=== PATIENT | female | born 1995 | race Caucasian/White ===

== ENCOUNTER 2017-09-26 12:24 | Emergency (ER) | payer OTHER ==
[2017-09-26] MEDS ORDERED: NORMAL SALINE 1000 ML 1,000 ML IV ONE (12:58)
--- NOTE | 2017-09-26 12:58 | ER Document Report ---
ED Medical Screen (RME) - General Chief Complaint: Headache Stated Complaint: HEADACHE Time Seen by Provider: 09/26/17 12:57 Mode of Arrival: Ambulatory Information source: Patient Notes: 21-year-old female with a history of migraines (has not had a migraine for a while) who presents to the emergency room with frontal headache, nausea, feeling shaky and feeling like she is going to faint. Patient states she took ibuprofen without any relief. Patient states it is worse than her normal migraines. Patient denies any fever or neck stiffness. Patient denies significant photophobia. Patient denies any recent illnesses. TRAVEL OUTSIDE OF THE [place] IN LAST 30 DAYS: No - Related Data Allergies/Adverse Reactions: No Known Allergies Allergy (Verified 09/26/17 12:25) Physical Exam - Vital signs Vitals: Temp Pulse Resp BP Pulse Ox 98.8 F 73 14 114/64 97 09/26/17 12:31 09/26/17 12:31 09/26/17 12:31 09/26/17 12:31 09/26/17 12:31 Course - Vital Signs Vital signs: Temp Pulse Resp BP Pulse Ox 98.8 F 73 14 114/64 97 09/26/17 12:31 09/26/17 12:31 09/26/17 12:31 09/26/17 12:31 09/26/17 12:31
[2017-09-26] MEDS ORDERED: DIPHENHYDRAMINE HCL 50 MG/ML VIAL IV ONE (12:59)
[2017-09-26] MEDS ORDERED: METOCLOPRAMIDE HCL INJ/PF 10 MG/2 ML SDV IV ONE (12:59)
[2017-09-26 14:06] LABS: ABSOLUTE LYMPHOCYTES (AUTO) 1.2 10^3/uL (0.5-4.7); ABSOLUTE MONOCYTES (AUTO) 0.5 10^3/uL (0.1-1.4); ABSOLUTE NEUT (AUTO) 9.3 10^3/uL (1.7-8.2); BASOPHILS % (AUTO) 0.2 % (0-2); EOSINOPHILS % (AUTO) 0.4 % (0-6); HEMATOCRIT 44.1 % (36.0-47.0); HEMOGLOBIN 15.2 g/dL (12.0-15.5); LYMPHOCYTES % (AUTO) 10.8 % (13-45); MEAN CORPUSCULAR HEMOGLOBIN 31.5 pg (27.0-33.4); MEAN CORPUSCULAR HGB CONC 34.4 g/dL (32.0-36.0); MEAN CORPUSCULAR VOLUME 92 fl (80-97); MONOCYTES % (AUTO) 4.4 % (3-13); PLATELET COUNT 230 10^3/uL (150-450); RED BLOOD COUNT 4.82 10^6/uL (3.72-5.28); RED CELL DISTRIBUTION WIDTH 12.7 % (11.5-14.0); SEGMENTED NEUTROPHILS % (AUTO) 84.2 % (42-78); TOTAL CELLS COUNTED % (AUTO) 100 %
--- NOTE | 2017-09-26 14:59 | ER Document Report ---
ED Headache - General Mode of Arrival: Ambulatory Information source: Patient TRAVEL OUTSIDE OF THE [place] IN LAST 30 DAYS: No <KOREY DAIGLE - Last Filed: 09/26/17 15:06> <CARLYN HARO - Last Filed: 10/03/17 09:31> - General Chief Complaint: Headache Stated Complaint: HEADACHE Time Seen by Provider: 09/26/17 12:57 Notes: 21-year-old female that presents to the emergency department today with complaints of a migraine headache. Patient states she woke up with this headache this morning. Patient states she has vision changes and bilateral hand numbness which is normal for her migraine headaches. Patient states she has had associated nausea and was near syncope. (KOREY DAIGLE) - Related Data Allergies/Adverse Reactions: No Known Allergies Allergy (Verified 09/26/17 12:25) Past Medical History - General Information source: Patient - Social History Smoking Status: Never Smoker Cigarette use (# per day): No Frequency of alcohol use: None Drug Abuse: None Lives with: Family Family History: Reviewed & Not Pertinent Patient has suicidal ideation: No Patient has homicidal ideation: No Neurological Medical History: Reports: Hx Migraine Surgical Hx: Negative <KOREY DAIGLE - Last Filed: 09/26/17 15:06> Review of Systems - Review of Systems Constitutional: No symptoms reported EENT: No symptoms reported Cardiovascular: See HPI, Syncope - near Respiratory: No symptoms reported Gastrointestinal: See HPI, Nausea Genitourinary: No symptoms reported Female Genitourinary: No symptoms reported Musculoskeletal: No symptoms reported Skin: No symptoms reported Hematologic/Lymphatic: No symptoms reported Neurological/Psychological: See HPI, Headaches -: Yes All other systems reviewed and negative <KOREY DAIGLE - Last Filed: 09/26/17 15:06> Physical Exam <KOREY DAIGLE - Last Filed: 09/26/17 15:06> <CARLYN HARO - Last Filed: 10/03/17 09:31> - Vital signs Vitals: Temp Pulse Resp BP Pulse Ox 98.8 F 73 14 114/64 97 09/26/17 12:31 09/26/17 12:31 09/26/17 12:31 09/26/17 12:31 09/26/17 12:31 - Notes Notes: Physical Exam: General: Alert, appears well. HEENT: Normocephalic. Atraumatic. PERRL. Extraocular movements intact. Oropharynx clear. Neck: Supple. Non-tender. Respiratory: No respiratory distress. Clear and equal breath sounds bilaterally. Cardiovascular: Regular rate and rhythm. Abdominal: Normal Inspection. Non-tender. No distension. Normal Bowel Sounds. Back: Non-tender. No deformity or step off. Extremities: Moves all four extremities. Upper extremities: Normal inspection. Normal ROM. Lower extremities: Normal inspection. No edema. Normal ROM. Neurological: Normal cognition. AAOx4. Normal speech. Cranial nerves II through XII grossly intact bilaterally. Psychological: Normal affect. Normal Mood. Skin: Warm. Dry. Normal color. (KOREY DAIGLE) Course - Laboratory Result Diagrams: 09/26/17 13:45 09/26/17 13:45 <KOREY DAIGLE - Last Filed: 09/26/17 15:06> - Laboratory Result Diagrams: 09/26/17 13:45 09/26/17 13:45 <CARLYN HARO - Last Filed: 10/03/17 09:31> - Re-evaluation Re-evalutation: 09/26/17 15:18 Patient brought a migraine cocktail by triage Dr. Patient upon questioning states if headache was 10 is now 1 or 2. Her headache was more severe but same in quality of her typical migraines. She has not had any falls or trauma no recent fevers or illnesses to suggest infectious etiology. Will provide patient Reglan for symptoms if her symptoms recur. Return precautions provided (CARLYN HARO) - Vital Signs Vital signs: Temp Pulse Resp BP Pulse Ox 98.5 F 78 18 97/55 L 100 09/26/17 15:42 09/26/17 15:42 09/26/17 15:42 09/26/17 15:42 09/26/17 15:42 - Laboratory Laboratory results interpreted by me: 09/26/17 13:45 WBC 11.0 H Seg Neutrophils % 84.2 H Lymphocytes % 10.8 L Absolute Neutrophils 9.3 H Discharge <KOREY DAIGLE - Last Filed: 09/26/17 15:06> <CARLYN HARO - Last Filed: 10/03/17 09:31> - Discharge Clinical Impression: Migraine Qualifiers: Migraine type: unspecified Status migrainosus presence: without status migrainosus Intractability: not intractable Qualified Code(s): G43.909 - Migraine, unspecified, not intractable, without status migrainosus Condition: Good Disposition: HOME, SELF-CARE Instructions: Headache ([facility]), Reglan ([facility]) Prescriptions: Metoclopramide HCl [Reglan 10 mg Tablet] 1 tab PO ASDIR PRN #25 tablet PRN Reason: Referrals: [facility] [Outside] - Follow up as needed Scribe Attestation: 10/03/17 09:31 I personally performed the services described in the documentation, reviewed and edited the documentation which was dictated to the scribe in my presence, and it accurately records my words and actions. (CARLYN HARO) Scribe Documentation - Scribe Written by Marke:: Jenny Davis, 09/26/2017 1518 acting as scribe for :: Rashaad <KOREY DAIGLE - Last Filed: 09/26/17 15:06>
[2017-09-26 15:45] VITALS: BP 97/55
== END 2017-09-26 15:44 | disposition home or self-care (01) ==
LOC: ER 12:24
DX: G43.909 Migraine, unspecified, not intractable, without status migrainosus (principal); H53.9 Unspecified visual disturbance; R20.0 Anesthesia of skin; R11.0 Nausea; R55 Syncope and collapse
CPT/HCPCS: 99283; 96360; 36415; 85025; J1200; J2765; J7030

== ENCOUNTER 2017-12-13 09:36 | Emergency (ER) | payer OTHER ==
--- NOTE | 2017-12-13 10:54 | ER Document Report ---
ED Medical Screen (RME) - General Chief Complaint: Vag Bleeding, +preg <12wks Stated Complaint: VAGINAL BLEEDING Time Seen by Provider: 12/13/17 10:52 Mode of Arrival: Ambulatory Information source: Patient Notes: This is a 22-year-old female who presents to the emergency with vaginal bleeding and lower pelvic cramping. Patient is 8 weeks has had a OB ultrasound as an outpatient. She states last night she noticed some blood while she wipes. She denies any significant blood loss. She denies any tissue passage. She does states she had some mild cramping this morning. She denies any recent illnesses. TRAVEL OUTSIDE OF THE [place] IN LAST 30 DAYS: No - HPI Onset: Yesterday Onset/Duration: Gradual Quality of pain: Cramping Severity: None Pain Level: Denies Associated Symptoms: denies: Chest pain, Fever, Slow to respond Exacerbated by: Denies Relieved by: Denies Similar symptoms previously: No Recently seen / treated by doctor: Yes - Related Data Smoking: Non-smoker Frequency of alcohol use: None Drug Abuse: None Allergies/Adverse Reactions: No Known Allergies Allergy (Verified 09/26/17 12:25) Past Medical History - General Information source: Patient - Social History Cigarette use (# per day): No Chew tobacco use (# tins/day): No Frequency of alcohol use: None Drug Abuse: None Lives with: Family Family history: None - Medical History Medical History: Negative Neurological Medical History: Reports: Hx Migraine Renal/ Medical History: Denies: Hx Peritoneal Dialysis Surgical Hx: Negative Review of Systems - Review of Systems Constitutional: denies: Chills, Fever EENT: No symptoms reported Cardiovascular: No symptoms reported Respiratory: No symptoms reported Gastrointestinal: No symptoms reported Genitourinary: No symptoms reported Female Genitourinary: See HPI Musculoskeletal: No symptoms reported Skin: No symptoms reported Hematologic/Lymphatic: No symptoms reported Neurological/Psychological: No symptoms reported Physical Exam - Vital signs Vitals: Temp Pulse Resp BP Pulse Ox 98.5 F 83 16 109/67 99 12/13/17 09:50 12/13/17 09:50 12/13/17 09:50 12/13/17 09:50 12/13/17 09:50 Notes: Physical exam: GENERAL: 22-year-old female, alert and oriented x3, no acute distress HEAD: Atraumatic, normocephalic. EYES: Pupils equal round and reactive to light, extraocular movements intact, sclera anicteric, conjunctiva are normal. ENT: nares patent, oropharynx clear. Moist mucous membranes. NECK: Normal range of motion, supple without obvious mass LUNGS: Breath sounds clear to auscultation bilaterally and equal. No wheezes rales or rhonchi. ABDOMEN: Soft, normoactive bowel sounds. No tenderness to palpation. No guarding, no rebound. No masses appreciated. EXTREMITIES: Normal range of motion, no pitting or edema. No clubbing or cyanosis. NEUROLOGICAL: Cranial nerves II through XII grossly intact. Normal speech, moving all extremities. PSYCH: Normal mood, normal affect. SKIN: Warm, Dry, normal turgor, no rashes or lesions noted. Course - Re-evaluation Re-evalutation: 12/13/17 14:05 I had a long discussion with patient. She does report that the ultrasound that she had as an outpatient 1 week ago showed an intrauterine which was 8 weeks and had a heartbeat. The calculations today are consistent with a 6-week and there is no heartbeat. I do not have the old ultrasound to compare it with. I did discuss my concern of a possible failed . I gave her precautions to follow as well as recommended following up with the [facility] doctor this week so that repeat blood work can be done. Also, she will require serial ultrasound to assess for viability of this . - Vital Signs Vital signs: Temp Pulse Resp BP Pulse Ox 97.7 F 74 16 106/72 100 12/13/17 12:41 12/13/17 12:41 12/13/17 09:50 12/13/17 12:41 12/13/17 12:41 - Laboratory Result Diagrams: 12/13/17 11:00 Laboratory results interpreted by me: 12/13/17 11:00 Beta HCG, Quant 5651.50 H - Diagnostic Test Radiology reviewed: Image reviewed, Reports reviewed - Ultrasound shows an intrauterine without a heartbeat. The estimated gestational age was 6 weeks, 3 days Doctor's Discharge - Discharge Clinical Impression: Vaginal bleeding in early Condition: Stable Disposition: HOME, SELF-CARE Additional Instructions: As we discussed, the ultrasound today showed an intra-uterine with a gestational age around 6 weeks, 3 days. Normally, this is when we would start to see a heartbeat. We do not see a heartbeat today. If the ultrasound from last week showed a heartbeat, this could indicate a failed and the beginnings of a miscarriage. We cannot say that for sure at this time, because a normal would not have a heartbeat until in the 6 to week gestational period. Her blood type today was a positive. For now, I would avoid intercourse, tampons, heavy lifting, ibuprofen and aspirin. You can take Tylenol for cramping. I would take it easy over the next few days. Follow-up with your OB doctor: Bring a copy of today's blood work as well as ultrasound report and the ultrasound on disc. You will require further blood work (beta quant with a baby level) as well as a repeat ultrasound. Return to the emergency room for worsening pain, bleeding. Referrals: PRASHANTH ARRINGTON MD [Primary Care Provider] - Follow up as needed
[2017-12-13 11:30] LABS: ABSOLUTE EOSINOPHILS # (AUTO) 0.1 10^3/uL (0.0-0.6); ABSOLUTE LYMPHOCYTES (AUTO) 1.9 10^3/uL (0.5-4.7); ABSOLUTE MONOCYTES (AUTO) 0.5 10^3/uL (0.1-1.4); ABSOLUTE NEUT (AUTO) 4.1 10^3/uL (1.7-8.2); BASOPHILS % (AUTO) 0.4 % (0-2); HEMOGLOBIN 15.1 g/dL (12.0-15.5); LYMPHOCYTES % (AUTO) 29.2 % (13-45); MEAN CORPUSCULAR HEMOGLOBIN 32.8 pg (27.0-33.4); MEAN CORPUSCULAR HGB CONC 35.1 g/dL (32.0-36.0); MEAN CORPUSCULAR VOLUME 94 fl (80-97); PLATELET COUNT 259 10^3/uL (150-450); RED CELL DISTRIBUTION WIDTH 12.9 % (11.5-14.0); SEGMENTED NEUTROPHILS % (AUTO) 61.4 % (42-78); TOTAL CELLS COUNTED % (AUTO) 100 %; WHITE BLOOD COUNT 6.6 10^3/uL (4.0-10.5)
--- NOTE | 2017-12-13 11:39 | RADIOLOGY REPORT (SQ) ---
EXAM DESCRIPTION: U/S OB TRANSVAGINAL W/O DOP COMPLETED DATE/TIME: 12/13/2017 11:27 am REASON FOR STUDY: 8 weeks preg, vag bleed COMPARISON: None. TECHNIQUE: Transvaginal static and realtime grayscale images acquired of the pelvis. Additional syeda cted spectral and color Doppler images recorded. All images stored on PACs. bHCG: Not available. CLINICAL DATES: 8 week 1 day. LIMITATIONS: None. FINDINGS: FETUS: Single Living intrauterine . ULTRASOUND EGA: 6 week 3 day. ULTRASOUND JORGE LUIS: 08/05/2018. EFW: Not applicable less than 20 weeks. CRL: 0.41 cm. FHR: No cardiac activity detected. SURVEY: No visualized anomalies. AMNIOTIC FLUID: Adequate amount. PLACENTA: Not yet developed due to early gestation. SUBCHORIONIC BLEED: No. SIZE OF BLEED: Not applicable. UTERUS: No masses. No anomalies. CERVICAL LENGTH: 3.7 cm. Closed. RIGHT ADNEXA: Normal ovary with normal vascular flow. No adnexal free fluid. No adnexal masses. LEFT ADNEXA: Normal ovary with normal vascular flow. No adnexal free fluid. No adnexal masses. FREE FLUID: None. OTHER: No other significant finding. IMPRESSION: INTRAUTERINE . EGA 6 week 3 day. NO CARDIAC ACTIVITY DETECTED. THIS IS CONCERNING FOR DEMISE ALTHOUGH MAY BE DUE TO EARLY STAGE OF . Trimester of : First - 0 to 13 weeks. TECHNICAL DOCUMENTATION: JOB ID: [id number] [employer]- All Rights Reserved rev-06/26 Reading location - IP/workstation name: [email or web address]
[2017-12-13 12:46] VITALS: BP 106/72
== END 2017-12-13 12:50 | disposition home or self-care (01) ==
LOC: ER 09:36
DX: O20.9 Hemorrhage in early pregnancy, unspecified (principal); Z3A.01 Less than 8 weeks gestation of pregnancy
CPT/HCPCS: 36415; 76817; 84702; 85025; 86900; 86901; 99284

== ENCOUNTER 2017-12-14 14:30 | Day surgery (SDC) | payer OTHER ==
[~2017-12-14 14:30] MED LIST: LIDOCAINE 1% INJ-PF (10 MG/ML) 30 ML SDV ONE
[2017-12-14] MEDS ORDERED: LIDOCAINE 2% INJ-PF (20 MG/ML) 10 ML AMPUL ONE (14:48)
[2017-12-14] MEDS ORDERED: FENTANYL CITRATE INJ/PF 100 MCG/2 ML AMPUL ONE (14:49)
[2017-12-14] MEDS ORDERED: PROPOFOL INJ 200 MG/20 ML VIAL IV ONE (14:49)
[2017-12-14] MEDS ORDERED: MIDAZOLAM 2 MG/2 ML INJ ONE (14:49)
[2017-12-14] MEDS ORDERED: ONDANSETRON HCL INJ/PF 4 MG/2 ML SDV ONE (14:49)
[2017-12-14] MEDS ORDERED: DEXAMETHASONE SOD PHOSPHATE INJ 4 MG/1 ML VIAL ONE (14:49)
[2017-12-14 14:59] LABS: ABSOLUTE EOSINOPHILS # (AUTO) 0.1 10^3/uL (0.0-0.6); ABSOLUTE LYMPHOCYTES (AUTO) 2.5 10^3/uL (0.5-4.7); ABSOLUTE MONOCYTES (AUTO) 0.6 10^3/uL (0.1-1.4); ABSOLUTE NEUT (AUTO) 6.7 10^3/uL (1.7-8.2); BASOPHILS % (AUTO) 0.3 % (0-2); EOSINOPHILS % (AUTO) 1.5 % (0-6); HEMATOCRIT 41.4 % (36.0-47.0); HEMOGLOBIN 14.8 g/dL (12.0-15.5); LYMPHOCYTES % (AUTO) 24.8 % (13-45); MEAN CORPUSCULAR HEMOGLOBIN 33.2 pg (27.0-33.4); MEAN CORPUSCULAR HGB CONC 35.7 g/dL (32.0-36.0); MEAN CORPUSCULAR VOLUME 93 fl (80-97); MONOCYTES % (AUTO) 6.1 % (3-13); PLATELET COUNT 245 10^3/uL (150-450); RED BLOOD COUNT 4.44 10^6/uL (3.72-5.28); RED CELL DISTRIBUTION WIDTH 12.8 % (11.5-14.0); SEGMENTED NEUTROPHILS % (AUTO) 67.3 % (42-78); TOTAL CELLS COUNTED % (AUTO) 100 %
[2017-12-14 15:16] LABS: ALANINE AMINOTRANSFERASE 26 U/L (9-52); ALBUMIN 4.4 g/dL (3.5-5.0); ALKALINE PHOSPHATASE 90 U/L (38-126); ANION GAP 10 (5-19); ASPARTATE AMINO TRANSFERASE 20 U/L (14-36); BILIRUBIN,DIRECT 0.2 mg/dL (0.0-0.4); BILIRUBIN,TOTAL 0.5 mg/dL (0.2-1.3); BLOOD UREA NITROGEN 10 mg/dL (7-20); CALCIUM 9.7 mg/dL (8.4-10.2); CARBON DIOXIDE 28 mmol/L (22-30); CHLORIDE 103 mmol/L (98-107); GLUCOSE 90 mg/dL (75-110); POTASSIUM 3.9 mmol/L (3.6-5.0); SODIUM 140.7 mmol/L (137-145); TOTAL PROTEIN 7.4 g/dL (6.3-8.2)
[2017-12-14] MEDS ORDERED: CEFAZOLIN 1 GM/D5W RTU 1 GM/50 ML RTUPB IV ONE (15:45)
[2017-12-14] MEDS ORDERED: ONDANSETRON HCL INJ/PF 4 MG/2 ML SDV IV PRN (17:51)
[2017-12-14] MEDS ORDERED: FENTANYL CITRATE INJ/PF 100 MCG/2 ML AMPUL IV PRN ×3 (17:51)
[2017-12-14] MEDS ORDERED: MORPHINE SULFATE 10 MG/ML INJ IV PRN (17:51)
[2017-12-14] MEDS ORDERED: PROMETHAZINE HCL INJ 25 MG/1 ML VIAL IV PRN ×3 (17:51→18:21)
[2017-12-14] MEDS ORDERED: DIPHENHYDRAMINE HCL 50 MG/ML VIAL IV PRN (17:51)
[2017-12-14] MEDS ORDERED: MEPERIDINE HCL/PF INJ 25 MG/1 ML DISP.SYRIN IV PRN (17:51)
[2017-12-14] MEDS ORDERED: OXYCODONE-ACETAMINOPHEN 5-325 MG TABLET PO PRN ×2 (18:20→18:21)
[2017-12-14 19:48] VITALS: BP 113/70
[2017-12-15] MEDS ORDERED: CEFAZOLIN 1 GM/D5W RTU 1 GM/50 ML RTUPB IV PRN (05:00)
--- NOTE | 2017-12-15 09:17 | OPERATIVE REPORT E ---
Operative Report NAME: GENNY DE LA CRUZ : 1995 AGE: 22Y DATE OF SURGERY: 12/14/2017 ROOM: PREOPERATIVE DIAGNOSIS: *------* AB secondary to demise. POSTOPERATIVE DIAGNOSIS: *------* AB secondary to demise. OPERATION: Suction D and C. SURGEON: PRASHANTH ARRINGTON M.D. ANESTHESIA: General. PERTINENT HISTORY AND OPERATIVE FINDINGS: This is a 22-year-old 2, para 1, last menstrual period made her about 8 weeks. She was checked in the ER earlier this week on Thursday; no cardiac activity. She came to our office today starting to bleed and no cardiac activity. She had not actually passed tissue yet but she was cramping and it was elected to proceed with a D and C per patient's choice. Risks and benefits were discussed of this procedure as opposed to letting it happen on its own. She is aware of the advantages and disadvantages of having a suction D and C and was willing to take these into consideration. At the time of surgery the vulva appeared to be normal. The vagina had some blood clots in it. The cervix was starting to dilate. The uterus was increased in size, about a 6-week size uterus. Adnexa was negative. OPERATIVE PROCEDURE: Patient was brought into the OR, placed on the table in a supine position, inducted under general anesthesia. Following this she was repositioned in a dorsal lithotomy position, prepped and draped in a sterile fashion. The bladder was emptied of about 50 mL of clear yellow urine. A pelvic under anesthesia was done with the above findings. A weighted speculum was inserted, the cervix grasped on its anterior lip with an Allis clamp. It was dilated to a #30 Ashley dilator, and then using a 10 curved suction curette this was gently introduced through the cervix, carried up to the fundus. The suction was then enabled and gently rotating and extracting the catheter the products of conception were removed. Having accomplished this the suction was disengaged. The suction catheter was once again carried through the cervix and up to the fundus. Suction was re-engaged and the suction catheter was rotated as we were removing it. There was no further tissue returned. At this point of time it was elected to do a curettage. A medium-sized sharp curette was introduced through the endocervix and the contents of the uterus were curetted. There was no more tissue return. One more time the suction catheter was introduced through the cervical os up to the fundus and then enabled, gently rotating and pulling it back. No more tissue was returned. No more blood was returned. This terminated the procedure. The anesthesia was discontinued. The patient was placed back in a supine position and transferred to the recovery room in satisfactory condition. ESTIMATED BLOOD LOSS: Somewhere between 25 and 50 mL of blood. DICTATING PHYSICIAN: PRASHANTH ARRINGTON M.D. [id number] PHY#: [id number] ID: [id number] JOB#: [id number] ACCT: [id number] cc:PRASHANTH ARRINGTON M.D. >
== END 2017-12-14 19:45 | disposition home or self-care (01) ==
LOC: OROUT 14:30
PROVIDERS: ATTEND Obstetrics & Gynecology
DX: O02.1 Missed abortion (principal)
CPT/HCPCS: 86900; 86901; 36415; 84702; 85025; 80053; 88305 ×2; 59820; J2250; J0690; J1100; J3010; J2405; J2704; J3490; 1965

== ENCOUNTER → 2018-01-13 | Outpatient (CLI) | payer OTHER | LOC: OD 14:26 | PROVIDERS: ATTEND Nurse Practitioner Primary Care | DX: N91.2 Amenorrhea, unspecified (principal); Z87.59 Personal history of other complications of pregnancy, childbirth and the puerperium | CPT/HCPCS: 36415; 84702 ==

== ENCOUNTER → 2018-05-14 | Outpatient (CLI) | payer OTHER | LOC: OD 11:01 | PROVIDERS: ATTEND Obstetrics & Gynecology | DX: Z32.00 Encounter for pregnancy test, result unknown (principal) | CPT/HCPCS: 36415; 84702 ==